=== PATIENT | male | born 1990 | race Caucasian/White ===

== ENCOUNTER → 2017-11-08 | Outpatient (CLI) | payer BC, OTHER ==
[2017-11-08 20:17] LABS: BASO # 0.1 10^3/uL (0.0-0.2); BASO % 0.7 % (0.0-1.0); EOS # 0.7 10^3/uL (0.0-0.50); EOS % 6.5 % (0.0-3.0); HEMATOCRIT 44.9 % (42.0-52.0); HEMOGLOBIN 13.6 g/dl (14.0-18.0); IMMATURE GRANULOCYTE % 0.4 % (0-3.0); LYMPH # 3.8 10^3/uL (1.5-6.5); LYMPH % 34.3 % (24.0-44.0); MEAN CORPUSCULAR HEMOGLOBIN 21.9 pg (27.0-33.0); MEAN CORPUSCULAR HGB CONC 30.3 g/dl (32.0-36.5); MEAN CORPUSCULAR VOLUME 72.4 fl (80.0-96.0); MONO # 0.9 10^3/uL (0.0-0.8); MONO % 8.4 % (0.0-5.0); NEUTROPHILS # 5.5 10^3/uL (1.8-7.7); NEUTROPHILS % 49.7 % (36.0-66.0); PLATELET COUNT, AUTOMATED 275 10^3/uL (150-450); RED CELL DISTRIBUTION WIDTH 14.6 % (11.5-14.5); WHITE BLOOD COUNT 11.2 10^3/uL (4.0-10.0)
[2017-11-08 20:23] LABS: ALBUMIN 4.5 GM/DL (3.2-5.2); ALKALINE PHOSPHATASE 84 U/L (45-117); ALT/SGPT 56 U/L (12-78); ANION GAP 6 MEQ/L (8-16); AST/SGOT 23 U/L (7-37); BILIRUBIN,TOTAL 0.4 MG/DL (0.2-1.0); BLOOD UREA NITROGEN 14 MG/DL (7-18); CALCIUM LEVEL 9.2 MG/DL (8.5-10.1); CARBON DIOXIDE LEVEL 30 MEQ/L (21-32); CHLORIDE LEVEL 105 MEQ/L (98-107); CREATININE FOR GFR 0.84 MG/DL (0.70-1.30); GLOMERULAR FILTRATION RATE > 60.0 (>60); GLUCOSE, FASTING 86 MG/DL (70-100); POTASSIUM SERUM 4.7 MEQ/L (3.5-5.1); SODIUM LEVEL 141 MEQ/L (136-145); TOTAL PROTEIN 8.6 GM/DL (6.4-8.2)
== END ==
LOC: M ADAMS 17:23
DX: R60.9 Edema, unspecified (principal)

== ENCOUNTER → 2019-05-12 | Outpatient (CLI) | payer OTHER ==
--- NOTE | 2019-05-12 15:40 | REP ---
CT OF THE MAXILLOFACIAL BONES WITHOUT CONTRAST: CLINICAL HISTORY: Chronic maxillary sinusitis. COMPARISON: 07/14/2013, CT maxillofacial without contrast. FINDINGS: There is complete opacification of the frontal sinuses, similar to prior. There is near complete opacification of the ethmoid sinuses, improved on the left. There is partial opacification of both maxillary sinuses, significantly improved bilaterally. There is improvement of sphenoid sinus opacification, greater on the left with near complete opacification of the right sphenoid sinus, similar to prior. There is decreased mucosal thickening of the nasal passages, most improved on the left with residual polypoid mucosal thickening on the right posteriorly. The cribriform plate, medial duval of the orbits, and optic canals are intact. Again, the carotid canals form a segment of the posterolateral duval of the sphenoid sinus. The sphenoid sinus septum inserts on the right. IMPRESSION: 1. Sinus mucosal thickening, significantly improved since the 07/14/2013 examination. 2. Soft tissue densities within the nasal passages, improved, with residual soft tissue density within the right nasal passage posteriorly. Unreviewed
== END ==
LOC: M RAD 11:25
PROVIDERS: ATTEND Otolaryngology
DX: J32.0 Chronic maxillary sinusitis (principal)

== ENCOUNTER 2019-07-02 08:35 | Day surgery (SDC) | payer OTHER ==
[~2019-07-02] VITALS: Ht 172.7 cm; Wt 85.3 kg
[~2019-07-02 08:35] MED LIST: CETI10CH PO; EPINEPHrine 1MG/ML INJ 30ML MD-VIAL As Ordered ONE; EPINEPHrine INJ 1 MG/ML 1ML AMP As Ordered ONE; FLON1SPR; LIDOCAINE 1% MDV 20ML VIAL SQ PRN; LIDOCAINE W/EPINEPHRINE 1% 20ML VIAL As Ordered ONE; LR 1,000 ML IV ONE; METHYLENE BLUE 0.5% (5MG/ML) 10 ML AMP (PROVAYBLUE)(Q9968 PER 1MG) As Ordered ONE; SODIUM CHLORIDE 0.9% NASAL GEL 15GM (AYR) As Ordered ONE; dexameTHASONE 4 MG/ML 1ML VIAL (J1100) IV ONE
[2019-07-02] MEDS ORDERED: ONDANSETRON 4MG/2ML VIAL (J2405) As Ordered ONE ×2 (10:28→16:43)
[2019-07-02] MEDS ORDERED: dexameTHASONE 4 MG/ML 1ML VIAL (J1100) As Ordered ONE (10:28)
[2019-07-02] MEDS ORDERED: ROCURONIUM BROMIDE 50 MG/5 ML VIAL As Ordered ONE ×2 (10:29→13:02)
[2019-07-02] MEDS ORDERED: LIDOCAINE 2% INJ 100 MG/5 ML SDV (FOR ANES.) As Ordered ONE (10:29)
[2019-07-02] MEDS ORDERED: PROPOFOL 200 MG/20 ML VIAL As Ordered ONE (10:29)
[2019-07-02] MEDS ORDERED: fentaNYL 100 MCG/2 ML INJECTION (J3010) As Ordered ONE ×3 (10:35→14:00)
[2019-07-02] MEDS ORDERED: MIDAZOLAM INJ 2 MG/2 ML VIAL (J2250) As Ordered ONE (10:35)
[2019-07-02] MEDS ORDERED: ACETAMINOPHEN 1000MG 100ML IV BTL (OFIRMEV) (J0131 PER 10MG) As Ordered ONE ×2 (10:43→14:14)
[2019-07-02] MEDS ORDERED: LACRILUBE (AKWA TEARS) OPHTH OINT 3.5 GM As Ordered ONE (12:18)
[2019-07-02] MEDS ORDERED: HYDROmorphone HCL 2 MG/ML 1ML VIAL (J1170) As Ordered ONE ×2 (14:30→15:12)
[2019-07-02] MEDS ORDERED: EPINEPHrine 1MG/ML INJ 30ML MD-VIAL As Ordered ONE (14:39)
[2019-07-02] MEDS ORDERED: NALOXONE INJ 0.4 MG/1 ML VIAL (J2310) As Ordered ONE (15:53)
[2019-07-02] MEDS ORDERED: LR 1,000 ML IV SCH (16:45)
[2019-07-02] MEDS ORDERED: ONDANSETRON 4MG/2ML VIAL (J2405) IV PRN ×2 (16:45→17:45)
[2019-07-02] MEDS ORDERED: fentaNYL 100 MCG/2 ML INJECTION (J3010) IV PRN (16:45)
[2019-07-02] MEDS ORDERED: oxyCODONE 5MG TAB PO PRN (16:45)
[2019-07-02] MEDS ORDERED: LEVALBUTEROL 1.25 MG/0.5 ML CONCENTRATE NEB As Ordered ONE (16:48)
[2019-07-02] MEDS ORDERED: METOCLOPRAMIDE INJ 10MG/2ML VIAL (J2765) IV PRN ×2 (17:00→18:15)
[2019-07-02] MEDS ORDERED: LEVALBUTEROL 1.25 MG/0.5 ML CONCENTRATE NEB INH ONE (17:30)
[2019-07-02] MEDS ORDERED: ACETAMINOPHEN 325 MG TAB PO PRN (17:45)
[2019-07-02] MEDS ORDERED: DOXYCYCLINE HYCLATE 100 MG TAB PO ONE (17:45)
[2019-07-02] MEDS ORDERED: METOCLOPRAMIDE INJ 10MG/2ML VIAL (J2765) As Ordered ONE (17:55)
[2019-07-02] MEDS ORDERED: ACETAMINOPHEN 500 MG TAB As Ordered ONE (20:31)
[2019-07-02] MEDS ORDERED: ACETAMINOPHEN 500 MG TAB PO ONE (21:00)
[2019-07-02] MEDS ORDERED: SODIUM CHLORIDE 0.9% NASAL GEL 15GM (AYR) PRN (22:00)
[2019-07-02 22:25] VITALS: BP 155/85
[2019-07-02 23:25] VITALS: BP 117/59
[2019-07-03 00:25] VITALS: BP 129/77
[2019-07-03 02:00] VITALS: BP 124/73
[2019-07-03] MEDS: LR 1,000 ML IV SCH ×2 (02:45→04:27)
[2019-07-03] MEDS: ACETAMINOPHEN TAB 650MG DOSE (2X325MG) PO PRN ×2 (04:26→09:28)
[2019-07-03] MEDS ORDERED: DOXYCYCLINE HYCLATE 100 MG TAB PO ONE (05:00)
[2019-07-03 06:00] VITALS: BP 112/63
[2019-07-03 09:00] VITALS: BP 117/58
--- NOTE | 2019-07-17 08:12 | RO ---
DATE OF PROCEDURE: 07/02/2019 PREPROCEDURE DIAGNOSES: 1. Chronic maxillary sinusitis. 2. Chronic ethmoid sinusitis. 3. Chronic frontal sinusitis. 4. Nasal polyposis. POSTPROCEDURE DIAGNOSES: 1. Chronic maxillary sinusitis. 2. Chronic ethmoid sinusitis. 3. Chronic frontal sinusitis. 4. Nasal polyposis. PROCEDURE: 1. Stereotactic surgery using the Brainlab. 2. Bilateral endoscopic maxillary antrostomy with soft tissue removal. 3. Bilateral anterior and posterior ethmoidectomy. 4. Bilateral endoscopic frontal sinusotomy using balloon. 5. Implantation of the Propel stents bilaterally. SURGEON: Dr. Saleem Gann. 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 CLINICAL PREAMBLE: This 28-year-old man presented to the office with recurrence of bilateral nasal polyposis. He has had sinus surgery done several year ago. He could not receive hemotherapy postop due to conflicting scheduling with his study. He had noticed recurrence of nasal congestion in the past year or so. Physical examination revealed recurrent of bilateral nasal polyposis. This was confirmed on the CT sinuses as well. Management options including surgery listed above have been discussed. The patient understood and consented to the procedure. DESCRIPTION OF PROCEDURE: The patient was identified in pre-holding and brought to the operating room in supine condition. In supine position on the operating room table, patient received general anesthesia followed by oral intubation without incident. Patient was prepped and draped in the usual fashion for the procedure. The headband was attached to the forehead. Good surface margin was obtained between the patient and the Brainlab system. Both sides were protected using Tegaderm and the lubricant. Both sides of the nasal cavity were packed using 1:100,000 epinephrine. The pledgets were removed. Both sides of the nasal cavity were inspected using 0 degree nasal endoscope, diffuse nasal polyposis was noted. Microdebrider set at 5000 RPM in oscillating mode was used to remove the nasal polyps on both sides. The middle nasal turbinates were identified and carefully preserved. Additional nasal polyps were resected from the left and right ostiomeatal complex area. At this time, the [employer] balloon system with illuminated guidewire was successfully used to probe the right frontal recess. The illuminated guidewire was successfully introduced into the right frontal sinus cavity. This was confirmed with positive illumination of the right frontal sinus cavities. The balloon was advanced into the frontal recess and inflated to atmospheric pressure for 5 seconds. Upon dilation of the right frontal recess, some purulent tissue was noted. The right frontal sinus was then irrigated with warm saline solution. T he diseased anterior ethmoid air cells were identified and resected using Blakesley forceps. The basal lamella was identified and cleared of polypoid degeneration as well. Posterior ethmoid air cells with disease polypoid degeneration were also resected. At this time, the right maxillary antrum was identified and resected of the tissue with polypoid degeneration. The right maxillary antrum was enlarged using the side-biting forceps. The right maxillary sinus cavity was then irrigated using warm saline solution as well. At this time, the attention was turned to the left side of the sinus cavity. The left frontal recess was identified and the balloon was introduced into the left frontal recess and dilated to 12 atmospheric of pressure of 5 seconds. The left frontal sinus was irrigated. Left anterior and posterior ethmoid air cells with polypoid degeneration were resected as well. Left maxillary antrostomy was performed using side-biting forceps with removal of tissue with polypoid degeneration. Left maxillary sinus was similarly irrigated as well. Complete hemostasis was observed at the end of the case. The Propel stent was inserted into each side of the ostiomeatal complex to insure medialization of the middle nasal turbinates. Sponge and instrument counts were correct at the end of the procedure. Estimated blood loss was approximately 15 mL. General anesthesia was reversed and patient was extubated and brought to the recovery room in stable condition.
== END 2019-07-03 13:00 | disposition home or self-care (01) ==
LOC: M SDC 08:35 → M PED 22:10 → M SDC 07-03 13:00
PROVIDERS: ATTEND Otolaryngology
DX: J32.0 Chronic maxillary sinusitis (principal); J32.2 Chronic ethmoidal sinusitis; J32.1 Chronic frontal sinusitis; J33.9 Nasal polyp, unspecified; L30.9 Dermatitis, unspecified; R06.83 Snoring; J30.89 Other allergic rhinitis
CPT/HCPCS: 31253; 31256; 88305; C2625; J0131; J1100; J1170; J2250; J2310; J2405; J2765; J3010; Q9968

== ENCOUNTER → 2022-05-02 | Outpatient (REF) | payer OTHER ==
[~2022-05-02] MED LIST changes: -EPINEPHrine 1MG/ML INJ 30ML MD-VIAL As Ordered ONE; -EPINEPHrine INJ 1 MG/ML 1ML AMP As Ordered ONE; -LIDOCAINE 1% MDV 20ML VIAL SQ PRN; -LIDOCAINE W/EPINEPHRINE 1% 20ML VIAL As Ordered ONE; -LR 1,000 ML IV ONE; -METHYLENE BLUE 0.5% (5MG/ML) 10 ML AMP (PROVAYBLUE)(Q9968 PER 1MG) As Ordered ONE; -SODIUM CHLORIDE 0.9% NASAL GEL 15GM (AYR) As Ordered ONE; -dexameTHASONE 4 MG/ML 1ML VIAL (J1100) IV ONE
[2022-05-02 16:42] LABS: HEMATOCRIT 42.8 % (42.0-52.0); MEAN CORPUSCULAR HGB CONC 30.4 g/dl (32.0-36.5); MEAN CORPUSCULAR VOLUME 72.3 fl (80.0-96.0); PLATELET COUNT, AUTOMATED 293 10^3/uL (150-450); RED BLOOD COUNT 5.92 10^6/uL (4.30-6.10); WHITE BLOOD COUNT 10.6 10^3/uL (4.0-10.0)
[2022-05-02 18:11] LABS: ALBUMIN 4.2 GM/DL (3.2-5.2); ALT/SGPT 38 U/L (12-78); BILIRUBIN,TOTAL 0.3 MG/DL (0.2-1.0); BLOOD UREA NITROGEN 17 MG/DL (7-18); CALCIUM LEVEL 9.4 MG/DL (8.5-10.1); CARBON DIOXIDE LEVEL 29 MEQ/L (21-32); CHLORIDE LEVEL 102 MEQ/L (98-107); CREATININE FOR GFR 0.82 MG/DL (0.70-1.30); FREE T4 0.85 NG/DL (0.76-1.46); GLOMERULAR FILTRATION RATE > 60.0 (>60); GLUCOSE, FASTING 80 MG/DL (70-100); POTASSIUM SERUM 4.2 MEQ/L (3.5-5.1); SODIUM LEVEL 137 MEQ/L (136-145); TOTAL PROTEIN 8.3 GM/DL (6.4-8.2)
== END ==
LOC: M SFHCADAM 15:18
PROVIDERS: ATTEND Family Medicine
DX: G43.019 Migraine without aura, intractable, without status migrainosus (principal)

== ENCOUNTER 2022-10-18 21:33 | Emergency (ER) | payer OTHER ==
[~2022-10-18] VITALS: Ht 177.8 cm; Wt 81.1 kg
[2022-10-18 21:36] VITALS: BP 129/81
== END 2022-10-19 01:41 | disposition left against medical advice (07) ==
LOC: M ED 21:33
DX: Z53.21 Procedure and treatment not carried out due to patient leaving prior to being seen by health care provider (principal)

== ENCOUNTER → 2023-02-16 | Outpatient (REF) | payer OTHER ==
[2023-02-16 16:33] LABS: HEMATOCRIT 45.5 % (42.0-52.0); MEAN CORPUSCULAR HEMOGLOBIN 22.4 pg (27.0-33.0); MEAN CORPUSCULAR HGB CONC 30.8 g/dl (32.0-36.5); MEAN CORPUSCULAR VOLUME 72.7 fl (80.0-96.0); PLATELET COUNT, AUTOMATED 299 10^3/uL (150-450); RED BLOOD COUNT 6.26 10^6/uL (4.30-6.10); WHITE BLOOD COUNT 10.8 10^3/uL (4.0-10.0)
[2023-02-16 16:34] LABS: FERRITIN 66.1 NG/ML (10.5-307.3); FOLATE 11.47 NG/ML (>5.4)
[2023-02-16 16:35] LABS: FREE T4 1.19 NG/DL (0.89-1.76); THYROID STIMULATING HORMONE 1.227 uIU/ML (0.55-4.78)
== END ==
LOC: M SFHCADAM 14:28
PROVIDERS: ATTEND Family Medicine
DX: R53.83 Other fatigue (principal); G47.10 Hypersomnia, unspecified; G47.9 Sleep disorder, unspecified; D64.9 Anemia, unspecified

== ENCOUNTER → 2023-05-01 | Outpatient (CLI) | payer OTHER | LOC: M RAD 08:34 | PROVIDERS: ATTEND Otolaryngology | DX: J32.4 Chronic pansinusitis (principal) ==

== ENCOUNTER → 2024-03-18 | Outpatient (CLI) | payer OTHER ==
[~2024-03-18] MED LIST changes: +AZEL1SPR4 NARES; +DUPI300I SC; +allergy shot
== END ==
LOC: M ADAMS 13:38
PROVIDERS: ATTEND Family Medicine
DX: M75.41 Impingement syndrome of right shoulder (principal)

== ENCOUNTER → 2024-04-25 | Outpatient (CLI) | payer OTHER | LOC: M SOG 07:53 | PROVIDERS: ATTEND Physician Assistant | DX: M50.30 Other cervical disc degeneration, unspecified cervical region (principal) ==

== ENCOUNTER → 2024-08-12 | Outpatient (CLI) | payer OTHER | LOC: M PLAIMG 07:20 | PROVIDERS: ATTEND Physician Assistant | DX: M54.2 Cervicalgia (principal) ==

== ENCOUNTER → 2024-08-27 | Outpatient (CLI) | payer OTHER | LOC: M WUC 13:45 | PROVIDERS: ATTEND Nurse Practitioner Family | DX: R05.9 Cough, unspecified (principal) ==

== ENCOUNTER → 2024-09-29 | Outpatient (REF) | payer OTHER | LOC: M SFHCWAGY 09:42 | PROVIDERS: ATTEND Physician Assistant Medical | DX: J40 Bronchitis, not specified as acute or chronic (principal) ==

== ENCOUNTER → 2025-02-05 | Outpatient (REF) | payer BC ==
[2025-02-05 17:16] LABS: HEMATOCRIT 47.2 % (42.0-52.0); HEMOGLOBIN 14.4 g/dl (13.5-17.5); MEAN CORPUSCULAR HEMOGLOBIN 21.7 pg (27.0-33.0); MEAN CORPUSCULAR HGB CONC 30.5 g/dl (32.0-36.5); MEAN CORPUSCULAR VOLUME 71.1 fl (80.0-96.0); PLATELET COUNT, AUTOMATED 305 10^3/uL (150-450); RED BLOOD COUNT 6.64 10^6/uL (4.30-6.10); WHITE BLOOD COUNT 9.1 10^3/uL (4.0-10.0)
[2025-02-05 17:33] LABS: HEMOGLOBIN A1c 5.3 % (4.0-6.0)
[2025-02-05 17:49] LABS: FREE T4 1.28 NG/DL (0.89-1.76)
[2025-02-05 17:53] LABS: FOLATE 20.48 NG/ML (>5.4)
[2025-02-05 17:54] LABS: ALBUMIN 4.3 G/DL (3.2-5.2); ALKALINE PHOSPHATASE 85 U/L (40-129); ALT/SGPT 32 U/L (7.0-40); AST/SGOT 21 U/L (<34); BILIRUBIN,TOTAL 0.5 MG/DL (0.3-1.2); BLOOD UREA NITROGEN 20 MG/DL (9-23); CALCIUM LEVEL 9.7 MG/DL (8.5-10.1); CARBON DIOXIDE LEVEL 29 MMOL/L (20-31); CHLORIDE LEVEL 103 MMOL/L (98-107); CHOLESTEROL LEVEL 261 MG/DL (<200); CHOLESTEROL RISK RATIO 4.79 (<5); GLOMERULAR FILTRATION RATE > 90.0 (>60); GLUCOSE, FASTING 82 MG/DL (60-100); HDL CHOLESTEROL 54.4 MG/DL (>40); NON-HDL-C 206.6 MG/DL; POTASSIUM SERUM 5.1 MMOL/L (3.5-5.1); SODIUM LEVEL 140 MMOL/L (136-145); TOTAL PROTEIN 8.2 G/DL (5.7-8.2); TRIGLYCERIDES LEVEL 88 MG/DL (<150); VITAMIN B12 LEVEL 943 PG/ML (211-911)
== END ==
LOC: M SFHCADAM 12:43
PROVIDERS: ATTEND Family Medicine
DX: R63.5 Abnormal weight gain (principal); R53.83 Other fatigue; Z13.220 Encounter for screening for lipoid disorders